=== PATIENT | male | born 1985 | race Caucasian/White ===

== ENCOUNTER 2018-12-06 10:54 | Emergency (ER) | payer BC, MEDICAID ==
[~2018-12-06] VITALS: Ht 185.4 cm; Wt 117.9 kg
[2018-12-06 11:04] VITALS: BP_SYST 128
[2018-12-06 11:38] LABS: BASOPHILS % (AUTO) 0.5 % (0.0-2.0); EOSINOPHILS # (AUTO) 0.1 K/uL (0.0-0.4); EOSINOPHILS % (AUTO) 0.9 % (0.0-4.0); HEMATOCRIT 44.7 % (36-54); LYMPHOCYTES # (AUTO) 1.7 K/uL (1.0-5.5); LYMPHOCYTES % (AUTO) 19.1 % (20.5-51.5); MEAN CORPUSCULAR HEMOGLOBIN 33 pg (27-31); MEAN CORPUSCULAR HGB CONC 34 % (32-36); MEAN CORPUSCULAR VOLUME 97 fL (79.0-98.0); MONOCYTES # (AUTO) 0.7 K/uL (0.0-1.0); MONOCYTES % (AUTO) 7.8 % (1.7-9.3); NEUTROPHILS # (AUTO) 6.6 K/uL (1.8-7.7); NEUTROPHILS % (AUTO) 71.7 % (40.0-70.0); PLATELET COUNT (AUTO) 353 K/uL (130-430); RED CELL DISTRIBUTION WIDTH 13.7 % (9.0-15.0); WHITE BLOOD COUNT (AUTO) 9.2 K/uL (4.8-10.8)
[2018-12-06 11:51] LABS: CALCIUM 9.1 mg/dL (8.4-11.0); CREATININE 0.87 mg/dL (0.55-1.30); POTASSIUM 3.7 mmol/L (3.5-5.1)
[2018-12-06 11:56] LABS: ALBUMIN 4.1 g/dL (3.4-4.8); TOTAL BILIRUBIN 0.4 mg/dL (0.0-1.0)
--- NOTE | 2018-12-06 11:57 | NUR ---
Patient to ER bed 4 to gown for evaluation. Side rails up. Report given to Rosi MARTINEZ.
--- NOTE | 2018-12-06 12:05 | NUR ---
ER Dr. Aaron at bedside examining patient.
[2018-12-06] MEDS ORDERED: NACL 0.9% 1,000 ML IV ONE (12:06)
[2018-12-06] MEDS ORDERED: ONDANSETRON HCL 4 MG/2 ML VIAL IVP ONE (12:15)
[2018-12-06] MEDS ORDERED: MORPHINE 4 MG/ML INJ. SYRINGE IVP ONE ×2 (12:15→12:45)
--- NOTE | 2018-12-06 12:25 | NUR ---
Patient presented to ER with abdominal pain. Patient A&Ox4, skin pink, respirations equal bilat, patient reports pain 10/10, afebrile, nausea, vomiting. Patient abdominal pain statrted this morning, Pt states he has a history of substance abuse and is on 73 mg methadone daily.
[2018-12-06] MEDS ORDERED: LIP20 PO (12:31)
[2018-12-06] MEDS ORDERED: METH40TA14 PO (12:31)
[2018-12-06] MEDS ORDERED: LISI-600 PO (12:31)
--- NOTE | 2018-12-06 12:50 | NUR ---
Pt reports he is full code
--- NOTE | 2018-12-06 12:50 | NUR ---
Medication reconciliation completed with information provided by pt. Any prior medication reconciliation on file was reviewed and corrected.
[2018-12-06] MEDS ORDERED: fentaNYL CITRATE/PF 100 MCG/2 ML AMP IVP ONE ×3 (13:00→16:00)
[2018-12-06] MEDS ORDERED: DIPHENHYDRAMINE INJ 50 MG/ML VIAL IVP ONE (13:45)
--- NOTE | 2018-12-06 16:21 | NUR ---
Patient report pain 9/10 after being medicated. Alert & appropriate, sitting up in chair. Provided urine sample, sent to lab.
--- NOTE | 2018-12-06 16:25 | NUR ---
Patient informed Dr. fitch declined request for pain medications.
--- NOTE | 2018-12-06 16:26 | NUR ---
Patient response appropriate. Patirnt sitting in chair, calm affect
[2018-12-06 16:36] LABS: BILIRUBIN,URINE NEGATIVE (NEGATIVE); BLOOD, URINE NEGATIVE (NEGATIVE); CLARITY/URINE CLEAR (CLEAR); COLOR,URINE YELLOW (YELLOW); GLUCOSE,URINE NEGATIVE (NEGATIVE); KETONES,URINE NEGATIVE (NEGATIVE); LEUKOCYTE ESTERASE ,URINE NEGATIVE (NEGATIVE); NITRITE, URINE NEGATIVE (NEGATIVE); PROTEIN URINE NEGATIVE (NEGATIVE); UROBILINOGEN,URINE 0.2 (0.2-1.0)
--- NOTE | 2018-12-06 17:58 | NUR ---
Patient to be transferred to [facility]. Is being transferred due to higher level of care. Receiving facility has accepting physician and available space. ER physician has signed transfer form. Patient or responsible democrat has agreed to transfer and signed form. Patient belongings inventoried and will be sent with patient. Copy of nursing notes, lab reports, EKG, Physicians Orders and X-rays to be sent with patient. Report called to Amy MARTINEZ at receiving facility. Receiving physician is Dr. Lantigua. [facility] has been called for transfer. .
[2018-12-06 18:00] VITALS: BP_SYST 136
== END 2018-12-06 17:58 | disposition short-term general hospital (02) ==
LOC: SED 10:54
DX: K85.90 Acute pancreatitis without necrosis or infection, unspecified (principal); K76.0 Fatty (change of) liver, not elsewhere classified; F10.10 Alcohol abuse, uncomplicated; R74.0 Nonspecific elevation of levels of transaminase and lactic acid dehydrogenase [LDH]; I10 Essential (primary) hypertension; E78.5 Hyperlipidemia, unspecified; Z79.899 Other long term (current) drug therapy
CPT/HCPCS: 36415; 74176; 80053; 81003; 83690; 85025; 96374; 96375; 96376; 99285; J1200; J2270; J2405; J3010; J7030